=== PATIENT | female | born 1950 | race Two or more races ===

== ENCOUNTER 2017-07-30 07:30 | Inpatient (IN) | payer OTHER ==
[~2017-07-30] VITALS: Ht 162.6 cm; Wt 79.4 kg
[~2017-07-30 07:30] MED LIST: DOLOGESIC 500-1 EACH PO; VITAMIN D400 UNI2
[2017-07-30] MEDS ORDERED: ASACOL HD800 MG PO (09:33)
[2017-07-30] MEDS ORDERED: [UNRECOGNIZED DRUG - OTHER] (09:34)
[2017-08-06] MEDS ORDERED: NEURONTIN800 MG PO (12:20)
[2017-08-06] MEDS ORDERED: AMOXICILLIN875 MG PO (12:20)
[2017-08-06] MEDS ORDERED: COLACE100 MG PO (12:20)
[2017-08-06] MEDS ORDERED: PERCOCET 5-3251 EACH PO (12:20)
[2017-08-06] MEDS ORDERED: CLONAZEPAM1 MG PO (12:20)
== END 2017-08-07 16:20 | disposition home or self-care (01) | DRG 460 ==
LOC: O/R 08-06 05:00 → PED 08-06 05:00 → EDBD 08-06 07:30 → SURH 08-06 07:30 → PED 08-06 18:47 → SURH 08-16 07:30
PROVIDERS: Orthopaedic Surgery Orthopaedic Surgery of the Spine
PROC: 0SG00AJ Fusion of Lumbar Vertebral Joint with Interbody Fusion Device, Posterior Approach, Anterior Column, Open Approach (ICD-10-PCS; 2017-08-06)
PROC: 0ST20ZZ Resection of Lumbar Vertebral Disc, Open Approach (ICD-10-PCS; 2017-08-06)
PROC: 07DS3ZZ Extraction of Vertebral Bone Marrow, Percutaneous Approach (ICD-10-PCS; 2017-08-06)
PROC: 0SG00A0 Fusion of Lumbar Vertebral Joint with Interbody Fusion Device, Anterior Approach, Anterior Column, Open Approach (ICD-10-PCS; principal; 2017-08-06 09:45)
DX: M48.061 Spinal stenosis, lumbar region without neurogenic claudication (principal); M43.16 Spondylolisthesis, lumbar region; M79.672 Pain in left foot; S92.912D Unspecified fracture of left toe(s), subsequent encounter for fracture with routine healing; M51.36 Other intervertebral disc degeneration, lumbar region

== ENCOUNTER 2018-05-06 12:31 | Outpatient (CLI) | payer OTHER ==
[~2018-05-06 12:31] MED LIST changes: +AMOXICILLIN875 MG PO; +ASACOL HD800 MG PO; +CLONAZEPAM1 MG PO; +COLACE100 MG PO; +NEURONTIN800 MG PO; +PERCOCET 5-3251 EACH PO; +[UNRECOGNIZED DRUG - OTHER]
== END 2018-05-06 12:40 | disposition home or self-care (01) ==
LOC: MAMO-SONO 12:31
DX: Z12.31 Encounter for screening mammogram for malignant neoplasm of breast (principal); Z87.898 Personal history of other specified conditions; N64.89 Other specified disorders of breast

== ENCOUNTER 2018-05-26 07:26 | Outpatient (CLI) | payer OTHER | END 2018-05-26 07:27 | disposition home or self-care (01) | LOC: SONOGRAMA 07:26 → MAMO-SONO 08:15 | DX: R10.84 Generalized abdominal pain (principal) ==

== ENCOUNTER 2019-01-17 06:23 | Outpatient (CLI) | payer OTHER | END 2019-01-17 06:30 | disposition home or self-care (01) | LOC: LAB 06:23 | DX: E03.8 Other specified hypothyroidism (principal); I10 Essential (primary) hypertension; E11.9 Type 2 diabetes mellitus without complications; E78.2 Mixed hyperlipidemia; M51.36 Other intervertebral disc degeneration, lumbar region; Z98.1 Arthrodesis status ==

== ENCOUNTER 2019-06-14 07:27 | Outpatient (CLI) | payer OTHER | END 2019-06-14 07:34 | disposition home or self-care (01) | LOC: MAMO-SONO 07:27 | DX: R10.84 Generalized abdominal pain (principal); N63.11 Unspecified lump in the right breast, upper outer quadrant; Z12.31 Encounter for screening mammogram for malignant neoplasm of breast; Z87.898 Personal history of other specified conditions ==

== ENCOUNTER 2019-06-27 10:10 | Outpatient (CLI) | payer OTHER | END 2019-06-27 10:28 | disposition home or self-care (01) | LOC: NUCLEAR 10:10 | DX: M81.0 Age-related osteoporosis without current pathological fracture (principal) ==

== ENCOUNTER 2019-07-21 08:45 | Emergency (ER) | payer OTHER ==
[~2019-07-21] VITALS: Ht 160 cm; Wt 81.6 kg
[2019-07-21] MEDS ORDERED: ACID REDUCER20 M1 PO (09:39)
[2019-07-21] MEDS ORDERED: [UNRECOGNIZED DRUG - OTHER] (09:39)
[2019-07-21] MEDS ORDERED: SIMETHICONE80 MG PO (09:40)
== END 2019-07-21 16:00 | disposition home or self-care (01) ==
LOC: ER 08:45
DX: N20.1 Calculus of ureter (principal)

== ENCOUNTER 2019-07-24 15:56 | Emergency (ER) | payer OTHER ==
[~2019-07-24] VITALS: Ht 165.1 cm; Wt 79.4 kg
[~2019-07-24 15:56] MED LIST changes: +ACID REDUCER20 M1 PO; +SIMETHICONE80 MG PO; +[UNRECOGNIZED DRUG - OTHER]
== END 2019-07-24 22:29 | disposition home or self-care (01) ==
LOC: ER 15:56
DX: R10.11 Right upper quadrant pain (principal); R10.31 Right lower quadrant pain; N39.0 Urinary tract infection, site not specified; B95.7 Other staphylococcus as the cause of diseases classified elsewhere